=== PATIENT | female | born 1935 | race Caucasian/White ===

== ENCOUNTER 2016-03-22 14:16 | Inpatient (IN) | payer OTHER, MEDICARE ==
[2016-03-22] MEDS ORDERED: Albuterol/Ipratropium Neb 3 ML AERS HHN ONE (14:36)
[2016-03-22 15:26] LABS: MEAN PLATELET VOLUME 8.5 fl; RED BLOOD COUNT 3.96 Mil/cmm (3.80-5.20)
[2016-03-22 15:30] LABS: HEMATOCRIT 34.5 % (35.0-45.0); HEMOGLOBIN 11.8 gm/dL (11.7-16.1); MEAN CELL VOLUME 87.2 fl (81-100); MEAN CORPUSCULAR HEMOGLOBIN 29.9 pg (27.0-31.0); MEAN CORPUSCULAR HGB CONC 34.3 pg (28.0-36.0); PLATELET COUNT 295 Th/cmm (150-400); RED CELL DISTRIBUTION WIDTH 13.4 % (11.5-20.0); WHITE BLOOD COUNT 17.8 Th/cmm (4.8-10.8)
--- NOTE | 2016-03-22 15:37 | Diagnostic Imaging Report ---
Portable chest x-ray HISTORY: Shortness of breath The heart appears somewhat enlarged. Infiltrates noted in the right lung base. This may be chronic. However, pneumonia cannot be excluded. No hilar or mediastinal abnormalities. IMPRESSION: 1. Infiltrate right lung base. This may be chronic. However, pneumonia cannot be excluded. Clinical correlation is needed. 2. Cardiomegaly
[2016-03-22 15:42] LABS: ALB/GLOB RATIO 0.8 (1.0-1.8); ALKALINE PHOSPHATASE 74 U/L (34-104); ANION GAP 11.2 (7.0-16.0); BILIRUBIN,TOTAL 0.5 mg/dL (0.3-1.0); BUN - UREA NITROGEN 15 mg/dL (7-25); CALCIUM SERUM 9.1 mg/dL (8.6-10.3); CARBON DIOXIDE 27.5 mEq/L (21.0-31.0); CHLORIDE 100 mEq/L (98-107); GLUCOSE 178 mg/dL (70-105); POTASSIUM SERUM 3.7 mEq/L (3.5-5.1); SGOT 27 U/L (13-39); SGPT/ALT 19 U/L (7-52); SODIUM SERUM 135 mEq/L (136-145)
[2016-03-22 15:59] LABS: BAND NEUTROPHILE 2 % (0-10); NEUTROPHILS 75 % (40-80); PLATELET ESTIMATE ADEQUATE (NORMAL); PLATELET MORPHOLOGY NORMAL (NORMAL); TOTAL CELLS COUNTED 100
[2016-03-22 16:00] LABS: EOSINOPHIL 0 % (0-5)
[2016-03-22] MEDS ORDERED: cefTRIAXone 2 GM in Sodium Chloride 0.9% 100 ML IV ONE (16:52)
[2016-03-22] MEDS ORDERED: Azithromycin 500 MG in Sodium Chloride 0.9% 250 ML IV ONE (16:54)
--- NOTE | 2016-03-22 16:59 | ED Physician Chart ---
Chief Complaint/HPI - Patient Information Date Seen:: 03/22/16 Time Seen:: 14:30 Chief Complaint:: COUGH, FEVER AND RAPID PULSE History of Present Illness:: Patient has a 3 to 4-day history of difficulty breathing, cough and earlier today fever. The patient's cough is productive of greenish sputum with no hemoptysis. The patient denies any diaphoresis, chest pain, or chills. The patient did have a fever earlier today when she was in her doctor's office. The patient's shortness of breath is significantly more severe today than it was 2- 3 days ago. Allergies:: Allergies Allergy/AdvReac Type Severity Reaction Status Date / Time No Known Allergies Allergy Verified 03/22/16 14:35 Vitals:: Vital Signs - 8 hr 03/22/16 03/22/16 14:36 15:09 Temp 99.6 F HR 112 102 RR 23 20 BP 143/66 O2 Sat % 91 99 Review of Systems - Review of Systems General/Constitutional: Fever, No chills, No weakness, No diaphoresis, Edema Skin: No skin lesions, No rash Head: No headache, No light-headedness Eyes: Acuity change, No loss of vision, No pain, No diplopia ENT: No earache, Nasal drainage, No sore throat Neck: No neck pain, No stiffness, No mass noted Cardio Vascular: No chest pain, No palpitations, No orthopnea, edema Pulmonary: SOB, Cough, Sputum (SPUTUM was green. NO Hemoptysis) GI: No nausea, No vomiting, No pain, No hematemesis G/U: No dysuria, No frequency, No hematuria Bmet: No abnormal vaginal bleed Musculoskeletal: No bone or joint pain, No back pain, No muscle pain Endocrine: No polyuria, No polydipsia Psychiatric: No prior psych history, No suicidal ideation Hematopoietic: No bruising, No lymphadenopathy Allergic/Immuno: No urticaria, No angioedema Neurological: No syncope, No focal symptoms, No weakness, No paresthesia, No headache, No seizure, No vertigo Past Medical History - Past Medical History Past Medical History: HTN (no history of diabetes and she is a nonsmoker.) Family Medical History - Family Member Daughter Hx Family Cancer: No Hx Family Coronary Artery Disease: No Hx Family Congestive Heart Failure: No Hx Family Hypertension: No Hx Family Stroke: No Hx Family Diabetes: No Hx Family Seizures: No Hx Family Dementia: No Hx Family HIV: No Hx Family COPD: No Hx Family Hepatitis: No Hx Family Tuberculosis: No Physical Exam - Physical Examination General/Constitutional: Awake, Well-developed, well-nourished, Alert Other Gen/Cons comments:: Patient is in mild respiratory distress at the present time. Head: Atraumatic Eyes: Lids, conjuctiva normal, PERRL, EOMI Skin: No rash, No skin lesions, No ecchymosis, Well hydrated ENMT: External ears, nose nl, Oropharynx nl, Tonsils nl Neck: Nontender, No JVD, No nuchal rigidity, No mass, No stridor Other Respiratory comments:: Patient with decreased breath sounds in the right base accompanied by a moist sounding rales. Cardio Vascular: No murmur, gallop, rubs, NL S1 S2 GI: No tenderness/rebounding/guarding, No organomegaly, No hernia, Normal BS's, Nondistended, No mass/bruits, No McBurney tenderness : No CVA tenderness, No discharge Other Extremities comments:: Patient with +1-2 peripheral edema in both lower extremities. No associated calf tenderness. Negative Homans sign. Neuro/Psych: Alert/oriented, Normal sensory exam, Normal motor strength, Judgement/insight normal, No focal deficits Misc: Normal back, No paraspinal tenderness Labs/Radiology/EKG Results - Lab Results Results: Laboratory Tests 03/22/16 03/22/16 03/22/16 15:10 15:10 15:10 WBC 17.8 H RBC 3.96 Hgb 11.8 Hct 34.5 L MCV 87.2 MCH 29.9 MCHC Differential 34.3 RDW 13.4 Plt Count 295 MPV 8.5 Band Neutrophils % 2 Neutrophils (Manual) 75 Lymphocytes 12 L Monocytes 11 H Eosinophils 0 Platelet Estimate ADEQUATE Platelet Morphology NORMAL RBC Morph Micro Appear NORMAL Sodium 135 L Potassium 3.7 Chloride 100 Carbon Dioxide 27.5 Anion Gap 11.2 BUN 15 Creatinine 1.0 Est GFR ( Amer) TNP Est GFR (Non-Af Amer) TNP BUN/Creatinine Ratio 15.0 Glucose 178 H Whole Bld Lactic Acid Calcium 9.1 Total Bilirubin 0.5 AST 27 ALT 19 Alkaline Phosphatase 74 Troponin I 0.01 B-Natriuretic Peptide Total Protein 7.9 Albumin 3.4 L Globulin 4.5 Albumin/Globulin Ratio 0.8 L 03/22/16 03/22/16 15:10 15:20 WBC RBC Hgb Hct MCV MCH MCHC Differential RDW Plt Count MPV Band Neutrophils % Neutrophils (Manual) Lymphocytes Monocytes Eosinophils Platelet Estimate Platelet Morphology RBC Morph Micro Appear Sodium Potassium Chloride Carbon Dioxide Anion Gap BUN Creatinine Est GFR ( Amer) Est GFR (Non-Af Amer) BUN/Creatinine Ratio Glucose Whole Bld Lactic Acid 1.37 Calcium Total Bilirubin AST ALT Alkaline Phosphatase Troponin I B-Natriuretic Peptide 101.0 H Total Protein Albumin Globulin Albumin/Globulin Ratio Laboratory Tests 03/22/16 03/22/16 03/22/16 15:10 15:10 15:10 WBC 17.8 H RBC 3.96 Hgb 11.8 Hct 34.5 L MCV 87.2 MCH 29.9 MCHC Differential 34.3 RDW 13.4 Plt Count 295 MPV 8.5 Band Neutrophils % 2 Neutrophils (Manual) 75 Lymphocytes 12 L Monocytes 11 H Eosinophils 0 Platelet Estimate ADEQUATE Platelet Morphology NORMAL RBC Morph Micro Appear NORMAL Sodium 135 L Potassium 3.7 Chloride 100 Carbon Dioxide 27.5 Anion Gap 11.2 BUN 15 Creatinine 1.0 Est GFR ( Amer) TNP Est GFR (Non-Af Amer) TNP BUN/Creatinine Ratio 15.0 Glucose 178 H Whole Bld Lactic Acid Calcium 9.1 Total Bilirubin 0.5 AST 27 ALT 19 Alkaline Phosphatase 74 Troponin I 0.01 B-Natriuretic Peptide Total Protein 7.9 Albumin 3.4 L Globulin 4.5 Albumin/Globulin Ratio 0.8 L 03/22/16 03/22/16 15:10 15:20 WBC RBC Hgb Hct MCV MCH MCHC Differential RDW Plt Count MPV Band Neutrophils % Neutrophils (Manual) Lymphocytes Monocytes Eosinophils Platelet Estimate Platelet Morphology RBC Morph Micro Appear Sodium Potassium Chloride Carbon Dioxide Anion Gap BUN Creatinine Est GFR ( Amer) Est GFR (Non-Af Amer) BUN/Creatinine Ratio Glucose Whole Bld Lactic Acid 1.37 Calcium Total Bilirubin AST ALT Alkaline Phosphatase Troponin I B-Natriuretic Peptide 101.0 H Total Protein Albumin Globulin Albumin/Globulin Ratio Marked leukocytosis with no evidence of anemia. Mild elevation of the serum glucose. Troponin within the normal range. BNP pending at this time. Single view portable CXR: Mild cardiomealy. NO mediastinal widening. NO pneumothorax. RLL zone infiltrate after discussion with radiology. Could also be consistant with mild CHF. - EKG Interpretations EKG Time:: 14:39 Rhythm: SINUS TACHYCARDIA WITH A RATE OF 110 Hext: NORMAL Rate: 110 Comments:: Normal DC interval. Normal QRS duration. Prolonged QT interval of 523. No Q waves. Nonspecific ST-T wave changes. Impression: abnormal EKG. Assessment - Assessment General Assessment: CASE SUMMARY: this 80-year-old female was sent to the emergency department by her physician for evaluation of respiratory distress, cough and fever. The patient symptoms began 3 to 4 days ago and have become progressively more severe. The patient's caucus productive of green sputum and she has had no hemoptysis. She has no chest pain, diaphoresis, nausea or vomiting. Patient has a history of CHF with mild peripheral edema. On physical examination the patient was in mild respiratory distress and mildly tachypnic with the respiratory rate of 22. With supplemental oxygen or O2 saturation was 100% and she had complete relief of respiratory distress. On physical examination the patient had no JVD but there was plus wonder +2 pretibial edema in both lower extremities. Homemand sign was negative and the patient had tenderness. Chest x- ray showed mild cardiomegaly with mild increase in vascular congestion. There is a mild infiltrate in the right lower lungs on. After discussing the case with Dr. Marie, the patient was begun on antibiotics for treatment of pneumonia and arrangements were made for admission to a medicine bed. Admission diagnosis is pneumonia. The patient may also have a component of CHF in addition to the pneumonia. No diuretics were indicated. MDM DDX FOR RESPIRATORY DISTRESS: NOT pulmonary embolism based on pt's history , exam and CXR. The pt Is LOW RISK for PE. NOT metabolic acidosis based on lab studies. NOT COPD exaceration due to pt's histoy, exam and alternate diagnosis of Pneumonia and possible mild CHF. ED Septic Shock - . Is Septic Shock (SBP<90, OR Lactate>4 mmol\L) present?: No - <6hrs of presentation: Vital Signs: Vital Signs - 8 hr 03/22/16 03/22/16 14:36 15:09 Temp 99.6 F HR 112 102 RR 23 20 BP 143/66 O2 Sat % 91 99 Reassessment (Disposition) - Reassessment Reassessment Condition:: Improved - Diagnosis Diagnosis:: RT LOWER LUNG PNEUMONIA. Possible mild CHF. - Aftercare/Follow up Instructions Aftercare/Follow-Up Instructions:: Counseled pt regarding lab results/diagnosis & need follow up - Patient Disposition Discharge/Transfer:: Acute Care w/in this hosp Accepting Physician:: DR. ERNANDEZ ED Discharge Plan - Patient Disposition Admit/Discharge/Transfer: Acute Care w/in this hosp
[2016-03-22] MEDS: Albuterol Nebulizer 2.5mg/3mL HHN SCH (20:37)
[2016-03-23] MEDS: Albuterol Nebulizer 2.5mg/3mL HHN SCH ×4 (02:57→19:23)
[2016-03-23 07:45] LABS: HEMOGLOBIN 10.4 gm/dL (11.7-16.1); MEAN CELL VOLUME 87.2 fl (81-100); MEAN CORPUSCULAR HEMOGLOBIN 29.8 pg (27.0-31.0); MEAN CORPUSCULAR HGB CONC 34.1 pg (28.0-36.0); MEAN PLATELET VOLUME 9.4 fl; PLATELET COUNT 275 Th/cmm (150-400); RED BLOOD COUNT 3.48 Mil/cmm (3.80-5.20); RED CELL DISTRIBUTION WIDTH 13.4 % (11.5-20.0); WHITE BLOOD COUNT 16.4 Th/cmm (4.8-10.8)
[2016-03-23 08:01] LABS: HEMATOCRIT 30.4 % (35.0-45.0)
[2016-03-23 08:36] LABS: BAND NEUTROPHILE 5 % (0-10); EOSINOPHIL 1 % (0-5); NEUTROPHILS 72 % (40-80); PLATELET ESTIMATE ADEQUATE (NORMAL); PLATELET MORPHOLOGY NORMAL (NORMAL); TOTAL CELLS COUNTED 100
[2016-03-23 08:47] LABS: ANION GAP 7.5 (7.0-16.0); BUN - UREA NITROGEN 13 mg/dL (7-25); BUN/CREATININE RATIO 16.3; CALCIUM SERUM 8.4 mg/dL (8.6-10.3); CARBON DIOXIDE 29.2 mEq/L (21.0-31.0); CHLORIDE 104 mEq/L (98-107); CREATININE - SERUM 0.8 mg/dL (0.6-1.2); GLUCOSE 137 mg/dL (70-105); POTASSIUM SERUM 3.7 mEq/L (3.5-5.1); SODIUM SERUM 137 mEq/L (136-145)
--- NOTE | 2016-03-23 10:25 | Diagnostic Imaging Report ---
CHEST X-RAY: AP view INDICATION: Pneumonia COMPARISON: 03/22/2016 FINDINGS: Patient is rotated. Mild congestive changes are noted. There may be a small right effusion. No focal consolidation. Mild cardiomegaly is noted. IMPRESSION: Mild congestive changes with probable small right effusion. Mild cardiomegaly.
[2016-03-23] MEDS ORDERED: VTE Chemical Prophylaxis Screen/Admission MC PRN (15:02)
[2016-03-23] MEDS: cefTRIAXone 1 GM in Sodium Chloride 0.9% 50 ML IV SCH (16:17)
[2016-03-23] MEDS: Azithromycin 250 MG in Sodium Chloride 0.9% 250 ML IV SCH (17:58)
--- NOTE | 2016-03-23 18:36 | General Progress Note ---
Subjective - Review of Systems Service Date: 03/23/16 Subjective: Patient feels better son was at the bedside afebrile breathing better Objective - Results Result Diagrams: 03/23/16 06:26 03/23/16 06:26 Recent Labs: Laboratory Last Values WBC 16.4 Th/cmm (4.8-10.8) H 03/23/16 06:26 RBC 3.48 Mil/cmm (3.80-5.20) L 03/23/16 06:26 Hgb 10.4 gm/dL (11.7-16.1) L 03/23/16 06:26 Hct 30.4 % (35.0-45.0) L D 03/23/16 06:26 MCV 87.2 fl (81-100) 03/23/16 06:26 MCH 29.8 pg (27.0-31.0) 03/23/16 06:26 MCHC Differential 34.1 pg (28.0-36.0) 03/23/16 06:26 RDW 13.4 % (11.5-20.0) 03/23/16 06:26 Plt Count 275 Th/cmm (150-400) 03/23/16 06:26 MPV 9.4 fl 03/23/16 06:26 Band Neutrophils % 5 % (0-10) 03/23/16 06:26 Neutrophils (Manual) 72 % (40-80) 03/23/16 06:26 Lymphocytes 15 % (20-50) L 03/23/16 06:26 Monocytes 7 % (2-10) 03/23/16 06:26 Eosinophils 1 % (0-5) 03/23/16 06:26 Platelet Estimate ADEQUATE (NORMAL) 03/23/16 06:26 Platelet Morphology NORMAL (NORMAL) 03/23/16 06:26 RBC Morph Micro Appear NORMAL (NORMAL) 03/23/16 06:26 Sodium 137 mEq/L (136-145) 03/23/16 06:26 Potassium 3.7 mEq/L (3.5-5.1) 03/23/16 06:26 Chloride 104 mEq/L (98-107) 03/23/16 06:26 Carbon Dioxide 29.2 mEq/L (21.0-31.0) 03/23/16 06:26 Anion Gap 7.5 (7.0-16.0) 03/23/16 06:26 BUN 13 mg/dL (7-25) 03/23/16 06:26 Creatinine 0.8 mg/dL (0.6-1.2) 03/23/16 06:26 Est GFR ( Amer) TNP 03/23/16 06:26 Est GFR (Non-Af Amer) TNP 03/23/16 06:26 BUN/Creatinine Ratio 16.3 03/23/16 06:26 Glucose 137 mg/dL (70-105) H 03/23/16 06:26 Whole Bld Lactic Acid 1.37 mmol/L (0.60-2.00) 03/22/16 15:20 Calcium 8.4 mg/dL (8.6-10.3) L 03/23/16 06:26 Total Bilirubin 0.5 mg/dL (0.3-1.0) 03/22/16 15:10 AST 27 U/L (13-39) 03/22/16 15:10 ALT 19 U/L (7-52) 03/22/16 15:10 Alkaline Phosphatase 74 U/L (34-104) 03/22/16 15:10 Troponin I 0.01 ng/mL (0.01-0.05) 03/22/16 15:10 B-Natriuretic Peptide 101.0 pg/mL (5.0-100.0) H 03/22/16 15:10 Total Protein 7.9 gm/dL (6.0-8.3) 03/22/16 15:10 Albumin 3.4 gm/dL (3.7-5.3) L 03/22/16 15:10 Globulin 4.5 gm/dL 03/22/16 15:10 Albumin/Globulin Ratio 0.8 (1.0-1.8) L 03/22/16 15:10 - Physical Exam Vitals and I&O: Vital Signs Temp 98.0 F 03/23/16 11:42 Pulse 95 03/23/16 14:06 Resp 18 03/23/16 14:06 BP 125/63 03/23/16 11:42 Pulse Ox 96 03/23/16 14:06 Intake & Output 03/22/16 03/23/16 03/23/16 18:59 06:59 18:59 Intake Total 550 100 Balance 550 100 Intake: Oral 550 100 Other: # Voids 1 2 # Bowel Movements 1 Active Medications: Current Medications Albuterol Sulfate (Albuterol 2.5mg/3ml Neb Ud) 2.5 mg HHN Q6HRT [facility] Stop: 05/21/16 18:59 Last Admin: 03/23/16 14:05 Dose: 2.5 mg Azithromycin 250 mg/ Sodium (Chloride) 250 mls @ 250 mls/hr IV Q24HR [facility] Stop: 05/22/16 16:59 Last Admin: 03/23/16 17:58 Dose: 250 mls/hr Ceftriaxone Sodium 1 gm/ (Sodium Chloride) 50 mls @ 100 mls/hr IV Q24HR [facility] Stop: 05/22/16 16:59 Last Admin: 03/23/16 16:17 Dose: 100 mls/hr Methylprednisolone Sodium Succinate (Solu-Medrol) 40 mg IV Q8HR [facility] Stop: 05/22/16 20:59 Miscellaneous (Vte Chemical Prophylaxis Screen/ Admission) 1 ea [facility] PRN PRN PRN Reason: PROTOCOL Stop: 05/22/16 15:01 Cardiovascular: Normal S1, Normal S2 Lungs: Other (rales better) Assessment/Plan - Problem List Patient Problems: All Active Problems COUGH AND CONGESTION WITH DYSPNEA (Acute) - Assessment Assessment: Pneumonia HTN Hyperlipidemia - Plan Plan: Continue rocephine and zithromax Oxygen HHN Monitor vitals Pulmonary on board Family was updated on pt's condition and plan of care
--- NOTE | 2016-03-23 21:26 | History & Physical ---
CHIEF COMPLAINT: Shortness of breath and hypoxia. HISTORY OF PRESENT ILLNESS: This is an 80-year-old female with underlying history of hypertension and hyperlipidemia, who was seen initially by me in the office for evaluation of the chest congestions, cough, shortness of breath. The patient was evaluated and appeared to have hypoxia. Oxygen saturation on room was 86-88%. Also, the patient appeared to be tachycardic in 110-120 range. So, the patient was sent to the Emergency Room for evaluation. Per ER physician's discussions, the patient appeared to have pneumonia and subsequently admitted for further evaluation and treatment. PAST MEDICAL HISTORY: Hypertension and hyperlipidemia. PAST SURGICAL HISTORY: No report of past surgical history. FAMILY HISTORY: Noncontributory. SOCIAL HISTORY: Lives at home. Denies any alcohol, tobacco or street drug use. CURRENT MEDICATIONS: As per medication reconciliation. ALLERGIES: No known allergies. REVIEW OF SYSTEMS: Positive for fever, chills, shortness of breath, cough, chest congestions. No diarrhea, no vomiting, no abdominal pain, no chest pain, no dizziness, no palpitations. PHYSICAL EXAMINATION: VITAL SIGNS: Temperature 98.3, pulse 79, respirations 18, blood pressure 101/50, oxygen 95% on room air. GENERAL APPEARANCE: The patient does not seem in acute distress. CARDIOVASCULAR: S1, S2 normal. LUNGS: Bilateral rales noted. ABDOMEN: Soft, nontender. NEUROLOGIC: The patient is awake. Moves all extremities. No focal deficits. EXTREMITIES: No edema. LABORATORY DATA: Available lab data is as follows: WBC is 17.8, hemoglobin 8.8, hematocrit 34.5. Sodium 135, potassium is 3.7, BUN 15, creatinine 1.0, glucose 178. AST 27, ALT 19. BNP 101. Chest x-ray: Right lung base infiltrate noted. ASSESSMENT: 1. Pneumonia. 2. Hyperlipidemia. 3. Hypertension. 4. Generalized debility. PLAN: The patient was admitted to the hospital for further evaluation and treatment of underlying pneumonia. The patient was started on IV losartan, Zithromax. Nebulizer treatment was started. Oxygen was started. Pulmonology was consulted. We will follow up on the Pulmonology recommendations. The patient's condition was discussed with the nursing staff. JOB# [id number]
[2016-03-24] MEDS: Albuterol Nebulizer 2.5mg/3mL HHN SCH ×4 (00:59→19:11)
[2016-03-24 05:27] LABS: HEMATOCRIT 32.4 % (35.0-45.0); MEAN CELL VOLUME 86.7 fl (81-100); MEAN CORPUSCULAR HEMOGLOBIN 29.5 pg (27.0-31.0); MEAN PLATELET VOLUME 8.7 fl; PLATELET COUNT 315 Th/cmm (150-400); RED BLOOD COUNT 3.73 Mil/cmm (3.80-5.20); RED CELL DISTRIBUTION WIDTH 13.5 % (11.5-20.0)
[2016-03-24 05:32] LABS: WHITE BLOOD COUNT 11.4 Th/cmm (4.8-10.8)
[2016-03-24 05:50] LABS: ANION GAP 3.9 (7.0-16.0); BUN - UREA NITROGEN 13 mg/dL (7-25); BUN/CREATININE RATIO 18.6; CARBON DIOXIDE 29.3 mEq/L (21.0-31.0); CHLORIDE 104 mEq/L (98-107); CREATININE - SERUM 0.7 mg/dL (0.6-1.2); GLUCOSE 235 mg/dL (70-105); POTASSIUM SERUM 4.2 mEq/L (3.5-5.1); SODIUM SERUM 133 mEq/L (136-145)
[2016-03-24 05:51] LABS: CALCIUM SERUM 8.7 mg/dL (8.6-10.3)
--- NOTE | 2016-03-24 06:23 | Consultation ---
The patient of Dr. Marie. Thank you very much, Dr. Marie, for this consultation. HISTORY OF PRESENT ILLNESS: This is an 80-year-old female who presented with fever, cough productive to yellowish, whitish sputum and some shortness of breath as well for a few days and was admitted for treatment and management. The patient appears to have productive cough. She denies any history of asthma or other lung problems, no history of smoking either. PAST MEDICAL HISTORY: As above, hypertension, hypercholesterolemia. SOCIAL HISTORY: No history of smoking. PHYSICAL EXAMINATION: GENERAL: Arousable, not in acute distress. VITAL SIGNS: Temperature 98.0, pulse 95, respirations 18, blood pressure is 125/66, saturation 96% on 2 liters nasal cannula. HEENT: Atraumatic, normocephalic. Pupils reactive to light and accommodation. Ears, nose normal. Throat class III upper airways. NECK: Supple. No JVD. CHEST: There are scattered rhonchi and wheezing bilaterally. HEART: Regular rate and rhythm. ABDOMEN: Soft. EXTREMITIES: No edema. LABORATORY DATA: WBC 16.4, hemoglobin 10.4, platelets 275. Sodium 137, potassium 3.7, BUN 13, creatinine 0.8. Chest x-ray, infiltrate right lower lobe area, mild congestion. IMPRESSION: This is an 80-year-old female with, 1. Acute bronchitis. 2. Pneumonia. 3. Bronchospasms. PLAN: 1. IV antibiotics. 2. Nebulizer. 3. Add IV Solu-Medrol. 4. Follow up chest x-ray, I will follow the patient with you. JOB# [id number] [facility]
[2016-03-24 08:17] LABS: BAND NEUTROPHILE 8 % (0-10); METAMYELOCYTE 1 % (0-0); NEUTROPHILS 84 % (40-80); PLATELET ESTIMATE ADEQUATE (NORMAL); PLATELET MORPHOLOGY NORMAL (NORMAL); TOTAL CELLS COUNTED 100
[2016-03-24] MEDS: cefTRIAXone 1 GM in Sodium Chloride 0.9% 50 ML IV SCH (16:47)
[2016-03-24] MEDS: Promethazine DM 6.25/15mg-5mL 5 ML SYR PO PRN (17:10)
[2016-03-24] MEDS: Azithromycin 250 MG in Sodium Chloride 0.9% 250 ML IV SCH (17:12)
--- NOTE | 2016-03-24 20:53 | General Progress Note ---
Subjective - Review of Systems Service Date: 03/24/16 Subjective: Patient feels better afebrile breathing better WBC better Objective - Results Result Diagrams: 03/24/16 04:41 03/24/16 04:41 Recent Labs: Laboratory Last Values WBC 11.4 Th/cmm (4.8-10.8) H D 03/24/16 04:41 RBC 3.73 Mil/cmm (3.80-5.20) L 03/24/16 04:41 Hgb 11.0 gm/dL (11.7-16.1) L 03/24/16 04:41 Hct 32.4 % (35.0-45.0) L 03/24/16 04:41 MCV 86.7 fl (81-100) 03/24/16 04:41 MCH 29.5 pg (27.0-31.0) 03/24/16 04:41 MCHC Differential 34.0 pg (28.0-36.0) 03/24/16 04:41 RDW 13.5 % (11.5-20.0) 03/24/16 04:41 Plt Count 315 Th/cmm (150-400) 03/24/16 04:41 MPV 8.7 fl 03/24/16 04:41 Band Neutrophils % 8 % (0-10) 03/24/16 04:41 Neutrophils (Manual) 84 % (40-80) H 03/24/16 04:41 Lymphocytes 6 % (20-50) L 03/24/16 04:41 Monocytes 1 % (2-10) L 03/24/16 04:41 Eosinophils 1 % (0-5) 03/23/16 06:26 Metamyelocytes 1 % (0-0) H 03/24/16 04:41 Platelet Estimate ADEQUATE (NORMAL) 03/24/16 04:41 Platelet Morphology NORMAL (NORMAL) 03/24/16 04:41 RBC Morph Micro Appear NORMAL (NORMAL) 03/24/16 04:41 Sodium 133 mEq/L (136-145) L 03/24/16 04:41 Potassium 4.2 mEq/L (3.5-5.1) 03/24/16 04:41 Chloride 104 mEq/L (98-107) 03/24/16 04:41 Carbon Dioxide 29.3 mEq/L (21.0-31.0) 03/24/16 04:41 Anion Gap 3.9 (7.0-16.0) L 03/24/16 04:41 BUN 13 mg/dL (7-25) 03/24/16 04:41 Creatinine 0.7 mg/dL (0.6-1.2) 03/24/16 04:41 Est GFR ( Amer) TNP 03/24/16 04:41 Est GFR (Non-Af Amer) TNP 03/24/16 04:41 BUN/Creatinine Ratio 18.6 03/24/16 04:41 Glucose 235 mg/dL (70-105) H 03/24/16 04:41 Hemoglobin A1c % 6.3 % (4.0-6.0) H 03/24/16 04:41 Whole Bld Lactic Acid 1.37 mmol/L (0.60-2.00) 03/22/16 15:20 Calcium 8.7 mg/dL (8.6-10.3) 03/24/16 04:41 Total Bilirubin 0.5 mg/dL (0.3-1.0) 03/22/16 15:10 AST 27 U/L (13-39) 03/22/16 15:10 ALT 19 U/L (7-52) 03/22/16 15:10 Alkaline Phosphatase 74 U/L (34-104) 03/22/16 15:10 Troponin I 0.01 ng/mL (0.01-0.05) 03/22/16 15:10 B-Natriuretic Peptide 101.0 pg/mL (5.0-100.0) H 03/22/16 15:10 Total Protein 7.9 gm/dL (6.0-8.3) 03/22/16 15:10 Albumin 3.4 gm/dL (3.7-5.3) L 03/22/16 15:10 Globulin 4.5 gm/dL 03/22/16 15:10 Albumin/Globulin Ratio 0.8 (1.0-1.8) L 03/22/16 15:10 - Physical Exam Vitals and I&O: Vital Signs Temp 96.7 F 03/24/16 20:00 Pulse 82 03/24/16 20:00 Resp 19 03/24/16 20:00 BP 117/53 03/24/16 20:00 Pulse Ox 97 03/24/16 20:00 Intake & Output 03/24/16 03/24/16 03/25/16 06:59 18:59 06:59 Intake Total 500 400 Balance 500 400 Intake: Oral 500 400 Other: # Voids 2 2 # Bowel Movements 0 0 Active Medications: Current Medications Albuterol Sulfate (Albuterol 2.5mg/3ml Neb Ud) 2.5 mg HHN Q6HRT [facility] Stop: 05/21/16 18:59 Last Admin: 03/24/16 19:11 Dose: 2.5 mg Azithromycin 250 mg/ Sodium (Chloride) 250 mls @ 250 mls/hr IV Q24HR [facility] Stop: 05/22/16 16:59 Last Admin: 03/24/16 17:12 Dose: 250 mls/hr Ceftriaxone Sodium 1 gm/ (Sodium Chloride) 50 mls @ 100 mls/hr IV Q24HR [facility] Stop: 05/22/16 16:59 Last Admin: 03/24/16 16:47 Dose: 100 mls/hr Methylprednisolone Sodium Succinate (Solu-Medrol) 40 mg IV Q8HR [facility] Stop: 05/22/16 20:59 Last Admin: 03/24/16 20:49 Dose: 40 mg Miscellaneous (Vte Chemical Prophylaxis Screen/ Admission) 1 ea [facility] PRN PRN PRN Reason: PROTOCOL Stop: 05/22/16 15:01 Promethazine HCl/Dextromethorphan (Phenergan Dm 6.25/15mg-5 Ml) 10 ml PO Q4HR PRN PRN Reason: Cough Stop: 05/23/16 13:51 Last Admin: 03/24/16 17:10 Dose: 10 ml Cardiovascular: Regular rate Lungs: Other (rales better) Assessment/Plan - Problem List Patient Problems: All Active Problems COUGH AND CONGESTION WITH DYSPNEA (Acute) - Assessment Assessment: Pneumonia HTN Hyperlipidemia Obesity Hyperglycemia 2' to steroids Debilty - Plan Plan: Continue rocephine and zithromax IV Solumedrol Oxygen HHN Monitor vitals Pulmonary on board Follow up chest xray in am Plan of care discussed with nursing staff
--- NOTE | 2016-03-25 00:49 | Admit Criteria Form ---
Admit Criteria Forms - Admit Criteria Diagnosis: PNEUMONIA, COMMUNITY ACQUIRED Clinical Indications for Admission to Inpatient Care ( Place 'X' for any and all applicable criteria): Admission is indicated for ANY ONE of the following (1)(2)(3): [ ]I. Hypoxemia indicated by ANY ONE of the following: [ ]a) Oxygen saturation less than 90% while breathing room air [ ]b) PO2 less than 60 mm Hg (8.0 kPa) while breathing room air [ ]c) Chronic lung disease with significant deterioration from baseline oxygenation [ ]II. Appropriate diagnostic testing and treatment unavailable in outpatient or recovery facility (eg,testing or infection control measures unavailable(10) [ ]III. Moderate-risk or high-risk category patients (Pneumonia Severity Index (PSI) class IV or V, or CURB-65 score of 3 or greater). [ ]IV. Outpatient treatment failure as indicated by ANY ONE of the following(9) : [ ]a) Failure to respond to antibiotic (eg, resistant organism) [ ]b) Clinically significant adverse effects from medication (eg, vomiting) [ ]c) Complications of pneumonia (eg, empyema, bacteremia) [ ]d) Significant worsening of comorbid cond necessitating inpatient care (eg, chronic heart failure) [X]V. Intermediate-risk category patients (eg, PSI class III or CURB-65 score 2) who do not improve with initial therapy and observation. [ ]. Immunocompromised patients (eg, AIDS, chronic steroid use) at moderate or high risk based on clinical evaluation. [ ]VII. Complicated pleural effusions (eg, exudative, loculated) [ ]VIII.Hemodynamic instability [ ] IX. Altered mental status that is severe or persistent. [ ]X. Dehydration that is severe or persistent. [ ]XI. Bacteremia [ ]XII. Respiratory finding (eg. tachypnea) that do not respond to outpatient or observation care treatment Extended stay beyond goal length of stay may be needed for (20) [ ]a) Unclear diagnosis [ ]b) Pleural disease [ ]c) Severe pneumonia or treatment failure (25 [ ]d) Respiratory failure (anticipate invasive or noninvasive ventilatory support) [ ]e) Abnormal serum electrolytes (serum Na concentration less than 135 mEq/L (mmol/L) (32)(33) [ ]f) Clinically significant comorbid illness (eg, heart failure, atrial fibrillation with rapid heart rate, alcohol withdrawal, renal insufficiency)(34)(35) [ ]g) Comorbid acute exacerbation of COPD(36) [ ]h) Concomitant diagnosis of malignancy that may be associated with malnutrition, immunologic impairment, or bronchial obstruction. [ ]i) Concomitant altered mental status [ ]j) Culture-identified Gram-negative or antibiotic-resistant organism (eg, Pseudomonas, methicillin-resistant Staphylococcus aureus)(30) [ ]k) Healthcare-associated pneumonia The original [facility] content created by [employer] has been revised. The portions of the content which have been revised are identified through the use of italic text or in bold, and [facility] has neither reviewed nor approved the modified material. All other unmodified content is copyright [facility] Please see references footnoted in the original [facility] [employer] edition 2016 Admit Criteria Met?: Yes
[2016-03-25] MEDS: Albuterol Nebulizer 2.5mg/3mL HHN SCH ×4 (01:01→19:25)
[2016-03-25] MEDS: methylPREDNISolone SS 40 mg Vial IVP SCH ×3 (05:02→21:01)
--- NOTE | 2016-03-25 09:39 | Diagnostic Imaging Report ---
CHEST X-RAY: AP view INDICATION: Shortness of breath COMPARISON: Chest x-ray 03/23/2016 FINDINGS: Mild congestive changes are seen with bibasal atelectasis. No focal consolidation identified. No effusions. Mild cardiomegaly is noted. IMPRESSION: Mild congestive changes and bibasal atelectasis. No focal consolidation identified. Mild cardiomegaly.
[2016-03-25] MEDS: cefTRIAXone 1 GM in Sodium Chloride 0.9% 50 ML IV SCH (16:44)
[2016-03-25] MEDS: Azithromycin 250 MG in Sodium Chloride 0.9% 250 ML IV SCH (17:33)
--- NOTE | 2016-03-25 20:47 | General Progress Note ---
Subjective - Review of Systems Service Date: 03/25/16 Subjective: Patient feels better denied any complaints Chest xray seems better Objective - Results Result Diagrams: 03/24/16 04:41 03/24/16 04:41 Recent Labs: Laboratory Last Values WBC 11.4 Th/cmm (4.8-10.8) H D 03/24/16 04:41 RBC 3.73 Mil/cmm (3.80-5.20) L 03/24/16 04:41 Hgb 11.0 gm/dL (11.7-16.1) L 03/24/16 04:41 Hct 32.4 % (35.0-45.0) L 03/24/16 04:41 MCV 86.7 fl (81-100) 03/24/16 04:41 MCH 29.5 pg (27.0-31.0) 03/24/16 04:41 MCHC Differential 34.0 pg (28.0-36.0) 03/24/16 04:41 RDW 13.5 % (11.5-20.0) 03/24/16 04:41 Plt Count 315 Th/cmm (150-400) 03/24/16 04:41 MPV 8.7 fl 03/24/16 04:41 Band Neutrophils % 8 % (0-10) 03/24/16 04:41 Neutrophils (Manual) 84 % (40-80) H 03/24/16 04:41 Lymphocytes 6 % (20-50) L 03/24/16 04:41 Monocytes 1 % (2-10) L 03/24/16 04:41 Eosinophils 1 % (0-5) 03/23/16 06:26 Metamyelocytes 1 % (0-0) H 03/24/16 04:41 Platelet Estimate ADEQUATE (NORMAL) 03/24/16 04:41 Platelet Morphology NORMAL (NORMAL) 03/24/16 04:41 RBC Morph Micro Appear NORMAL (NORMAL) 03/24/16 04:41 Sodium 133 mEq/L (136-145) L 03/24/16 04:41 Potassium 4.2 mEq/L (3.5-5.1) 03/24/16 04:41 Chloride 104 mEq/L (98-107) 03/24/16 04:41 Carbon Dioxide 29.3 mEq/L (21.0-31.0) 03/24/16 04:41 Anion Gap 3.9 (7.0-16.0) L 03/24/16 04:41 BUN 13 mg/dL (7-25) 03/24/16 04:41 Creatinine 0.7 mg/dL (0.6-1.2) 03/24/16 04:41 Est GFR ( Amer) TNP 03/24/16 04:41 Est GFR (Non-Af Amer) TNP 03/24/16 04:41 BUN/Creatinine Ratio 18.6 03/24/16 04:41 Glucose 235 mg/dL (70-105) H 03/24/16 04:41 Hemoglobin A1c % 6.3 % (4.0-6.0) H 03/24/16 04:41 Whole Bld Lactic Acid 1.37 mmol/L (0.60-2.00) 03/22/16 15:20 Calcium 8.7 mg/dL (8.6-10.3) 03/24/16 04:41 Total Bilirubin 0.5 mg/dL (0.3-1.0) 03/22/16 15:10 AST 27 U/L (13-39) 03/22/16 15:10 ALT 19 U/L (7-52) 03/22/16 15:10 Alkaline Phosphatase 74 U/L (34-104) 03/22/16 15:10 Troponin I 0.01 ng/mL (0.01-0.05) 03/22/16 15:10 B-Natriuretic Peptide 101.0 pg/mL (5.0-100.0) H 03/22/16 15:10 Total Protein 7.9 gm/dL (6.0-8.3) 03/22/16 15:10 Albumin 3.4 gm/dL (3.7-5.3) L 03/22/16 15:10 Globulin 4.5 gm/dL 03/22/16 15:10 Albumin/Globulin Ratio 0.8 (1.0-1.8) L 03/22/16 15:10 - Physical Exam Vitals and I&O: Vital Signs Temp 97.2 F 03/25/16 16:00 Pulse 70 03/25/16 19:26 Resp 18 03/25/16 19:26 BP 147/70 03/25/16 16:00 Pulse Ox 97 03/25/16 19:26 Intake & Output 03/25/16 03/25/16 03/26/16 06:59 18:59 06:59 Intake Total 500 750 Balance 500 750 Intake: Intake, IV Amount 250 Azithromycin 250 mg In 250 Sodium Chloride 0.9% 250 ml @ 250 mls/hr IV Q24HR [facility] Rx#:[id number] Oral 500 500 Other: # Voids 2 4 # Bowel Movements 1 1 Stool Characteristics Formed Active Medications: Current Medications Albuterol Sulfate (Albuterol 2.5mg/3ml Neb Ud) 2.5 mg HHN Q6HRT [facility] Stop: 05/21/16 18:59 Last Admin: 03/25/16 19:25 Dose: 2.5 mg Azithromycin 250 mg/ Sodium (Chloride) 250 mls @ 250 mls/hr IV Q24HR [facility] Stop: 05/22/16 16:59 Last Infusion: 03/25/16 18:35 Dose: Infused Ceftriaxone Sodium 1 gm/ (Sodium Chloride) 50 mls @ 100 mls/hr IV Q24HR [facility] Stop: 05/22/16 16:59 Last Admin: 03/25/16 16:44 Dose: 100 mls/hr Methylprednisolone Sodium Succinate (Solu-Medrol) 20 mg IVP Q8HR [facility] Stop: 05/24/16 04:59 Last Admin: 03/25/16 13:19 Dose: 20 mg Miscellaneous (Vte Chemical Prophylaxis Screen/ Admission) 1 [facility] PRN PRN PRN Reason: PROTOCOL Stop: 05/22/16 15:01 Promethazine HCl/Dextromethorphan (Phenergan Dm 6.25/15mg-5 Ml) 10 ml PO Q4HR PRN PRN Reason: Cough Stop: 05/23/16 13:51 Last Admin: 03/24/16 17:10 Dose: 10 ml Cardiovascular: Regular rate Lungs: Other (rales better) Abdomen: Soft Assessment/Plan - Problem List Patient Problems: All Active Problems COUGH AND CONGESTION WITH DYSPNEA (Acute) - Assessment Assessment: Pneumonia HTN Hyperlipidemia Obesity Hyperglycemia 2' to steroids Debilty - Plan Plan: Continue rocephine and zithromax IV Solumedrol Oxygen HHN Monitor vitals Pulmonary on board Follow up chest xray in am Plan of care discussed with nursing staff OLGA planing for SNIF
[2016-03-26] MEDS: Promethazine DM 6.25/15mg-5mL 5 ML SYR PO PRN (01:07)
[2016-03-26] MEDS: Albuterol Nebulizer 2.5mg/3mL HHN SCH ×4 (01:44→22:02)
[2016-03-26] MEDS: methylPREDNISolone SS 40 mg Vial IVP SCH ×3 (05:40→21:49)
[2016-03-26 07:25] LABS: ALB/GLOB RATIO 0.8 (1.0-1.8); ALKALINE PHOSPHATASE 66 U/L (34-104); ANION GAP 9.3 (7.0-16.0); BILIRUBIN,TOTAL 0.2 mg/dL (0.3-1.0); BUN - UREA NITROGEN 27 mg/dL (7-25); BUN/CREATININE RATIO 38.6; CALCIUM SERUM 8.9 mg/dL (8.6-10.3); CARBON DIOXIDE 29.5 mEq/L (21.0-31.0); CHLORIDE 105 mEq/L (98-107); CREATININE - SERUM 0.7 mg/dL (0.6-1.2); GLUCOSE 201 mg/dL (70-105); POTASSIUM SERUM 4.8 mEq/L (3.5-5.1); SGOT 18 U/L (13-39); SGPT/ALT 25 U/L (7-52); SODIUM SERUM 139 mEq/L (136-145)
--- NOTE | 2016-03-26 10:29 | Diagnostic Imaging Report ---
Portable chest x-ray HISTORY: Shortness of breath The overall heart size is difficult to assess with portable technique in a poor inspiration. Poor visualization the left lower lobe that appears related to overlying soft tissues. No obvious focal parenchymal processes are seen. IMPRESSION: 1. Poor visualization of the left lower lobe that appears related to overlying soft tissues. No obvious focal processes are seen. If necessary, a follow-up radiograph would provide for further assessment.
[2016-03-26] MEDS: Azithromycin 250 MG in Sodium Chloride 0.9% 250 ML IV SCH (16:00)
[2016-03-26] MEDS: cefTRIAXone 1 GM in Sodium Chloride 0.9% 50 ML IV SCH (16:15)
[2016-03-27] MEDS: Albuterol Nebulizer 2.5mg/3mL HHN SCH ×4 (02:11→20:17)
[2016-03-27] MEDS: methylPREDNISolone SS 40 mg Vial IVP SCH ×2 (09:35→20:56)
[2016-03-27] MEDS: Azithromycin 250 MG in Sodium Chloride 0.9% 250 ML IV SCH (16:25)
[2016-03-27] MEDS: cefTRIAXone 1 GM in Sodium Chloride 0.9% 50 ML IV SCH (18:28)
--- NOTE | 2016-03-27 19:17 | General Progress Note ---
Subjective - Review of Systems Service Date: 03/27/16 Subjective: Patient feels better denied any complaints Objective - Results Result Diagrams: 03/24/16 04:41 03/26/16 05:46 Recent Labs: Laboratory Last Values WBC 11.4 Th/cmm (4.8-10.8) H D 03/24/16 04:41 RBC 3.73 Mil/cmm (3.80-5.20) L 03/24/16 04:41 Hgb 11.0 gm/dL (11.7-16.1) L 03/24/16 04:41 Hct 32.4 % (35.0-45.0) L 03/24/16 04:41 MCV 86.7 fl (81-100) 03/24/16 04:41 MCH 29.5 pg (27.0-31.0) 03/24/16 04:41 MCHC Differential 34.0 pg (28.0-36.0) 03/24/16 04:41 RDW 13.5 % (11.5-20.0) 03/24/16 04:41 Plt Count 315 Th/cmm (150-400) 03/24/16 04:41 MPV 8.7 fl 03/24/16 04:41 Band Neutrophils % 8 % (0-10) 03/24/16 04:41 Neutrophils (Manual) 84 % (40-80) H 03/24/16 04:41 Lymphocytes 6 % (20-50) L 03/24/16 04:41 Monocytes 1 % (2-10) L 03/24/16 04:41 Eosinophils 1 % (0-5) 03/23/16 06:26 Metamyelocytes 1 % (0-0) H 03/24/16 04:41 Platelet Estimate ADEQUATE (NORMAL) 03/24/16 04:41 Platelet Morphology NORMAL (NORMAL) 03/24/16 04:41 RBC Morph Micro Appear NORMAL (NORMAL) 03/24/16 04:41 Sodium 139 mEq/L (136-145) 03/26/16 05:46 Potassium 4.8 mEq/L (3.5-5.1) 03/26/16 05:46 Chloride 105 mEq/L (98-107) 03/26/16 05:46 Carbon Dioxide 29.5 mEq/L (21.0-31.0) 03/26/16 05:46 Anion Gap 9.3 (7.0-16.0) 03/26/16 05:46 BUN 27 mg/dL (7-25) H 03/26/16 05:46 Creatinine 0.7 mg/dL (0.6-1.2) 03/26/16 05:46 Est GFR ( Amer) TNP 03/26/16 05:46 Est GFR (Non-Af Amer) TNP 03/26/16 05:46 BUN/Creatinine Ratio 38.6 03/26/16 05:46 Glucose 201 mg/dL (70-105) H 03/26/16 05:46 Hemoglobin A1c % 6.3 % (4.0-6.0) H 03/24/16 04:41 Whole Bld Lactic Acid 1.37 mmol/L (0.60-2.00) 03/22/16 15:20 Calcium 8.9 mg/dL (8.6-10.3) 03/26/16 05:46 Total Bilirubin 0.2 mg/dL (0.3-1.0) L 03/26/16 05:46 AST 18 U/L (13-39) 03/26/16 05:46 ALT 25 U/L (7-52) 03/26/16 05:46 Alkaline Phosphatase 66 U/L (34-104) 03/26/16 05:46 Troponin I 0.01 ng/mL (0.01-0.05) 03/22/16 15:10 B-Natriuretic Peptide 101.0 pg/mL (5.0-100.0) H 03/22/16 15:10 Total Protein 6.7 gm/dL (6.0-8.3) 03/26/16 05:46 Albumin 2.9 gm/dL (3.7-5.3) L 03/26/16 05:46 Globulin 3.8 gm/dL 03/26/16 05:46 Albumin/Globulin Ratio 0.8 (1.0-1.8) L 03/26/16 05:46 - Physical Exam Vitals and I&O: Vital Signs Temp 97.3 F 03/27/16 16:00 Pulse 82 03/27/16 16:00 Resp 18 03/27/16 16:00 BP 147/79 03/27/16 16:00 Pulse Ox 95 03/27/16 16:00 Intake & Output 03/27/16 03/27/16 03/28/16 06:59 18:59 06:59 Intake Total 200 Balance 200 Intake: Oral 200 Other: # Voids 4 # Bowel Movements 2 Active Medications: Current Medications Albuterol Sulfate (Albuterol 2.5mg/3ml Neb Ud) 2.5 mg HHN Q6HRT [facility] Stop: 05/21/16 18:59 Last Admin: 03/27/16 12:10 Dose: 2.5 mg Azithromycin 250 mg/ Sodium (Chloride) 250 mls @ 250 mls/hr IV Q24HR [facility] Stop: 05/22/16 16:59 Last Admin: 03/27/16 16:25 Dose: 250 mls/hr Ceftriaxone Sodium 1 gm/ (Sodium Chloride) 50 mls @ 100 mls/hr IV Q24HR [facility] Stop: 05/22/16 16:59 Last Admin: 03/27/16 18:28 Dose: 100 mls/hr Methylprednisolone Sodium Succinate (Solu-Medrol) 20 mg IVP Q12HR [facility] Stop: 05/25/16 20:59 Last Admin: 03/27/16 09:35 Dose: 20 mg Miscellaneous (Vte Chemical Prophylaxis Screen/ Admission) 1 [facility] PRN PRN PRN Reason: PROTOCOL Stop: 05/22/16 15:01 Promethazine HCl/Dextromethorphan (Phenergan Dm 6.25/15mg-5 Ml) 10 ml PO Q4HR PRN PRN Reason: Cough Stop: 05/23/16 13:51 Last Admin: 03/26/16 01:07 Dose: 10 ml Cardiovascular: Regular rate Lungs: Other (rales better) Abdomen: Soft Assessment/Plan - Problem List Patient Problems: All Active Problems COUGH AND CONGESTION WITH DYSPNEA (Acute) - Assessment Assessment: Pneumonia HTN Hyperlipidemia Obesity Hyperglycemia 2' to steroids Debilty - Plan Plan: Continue rocephine and zithromax IV Solumedrol Oxygen HHN Monitor vitals Pulmonary on board Follow up chest xray in am Plan of care discussed with nursing staff LOGA planing for SNIF
[2016-03-28] MEDS: Albuterol Nebulizer 2.5mg/3mL HHN SCH ×4 (01:28→19:12)
[2016-03-28 05:50] LABS: HEMATOCRIT 34.9 % (35.0-45.0); MEAN CORPUSCULAR HEMOGLOBIN 29.5 pg (27.0-31.0); MEAN CORPUSCULAR HGB CONC 34.3 pg (28.0-36.0); MEAN PLATELET VOLUME 9.1 fl; RED BLOOD COUNT 4.06 Mil/cmm (3.80-5.20); RED CELL DISTRIBUTION WIDTH 13.7 % (11.5-20.0)
[2016-03-28 05:54] LABS: PLATELET COUNT 413 Th/cmm (150-400); WHITE BLOOD COUNT 14.3 Th/cmm (4.8-10.8)
[2016-03-28 06:06] LABS: ANION GAP 7.7 (7.0-16.0); BUN - UREA NITROGEN 23 mg/dL (7-25); BUN/CREATININE RATIO 28.8; CARBON DIOXIDE 29.2 mEq/L (21.0-31.0); CHLORIDE 103 mEq/L (98-107); CREATININE - SERUM 0.8 mg/dL (0.6-1.2); GLUCOSE 244 mg/dL (70-105); POTASSIUM SERUM 4.9 mEq/L (3.5-5.1); SODIUM SERUM 135 mEq/L (136-145)
[2016-03-28 09:41] LABS: NEUTROPHILS 91 % (40-80); TOTAL CELLS COUNTED 100
[2016-03-28 09:42] LABS: EOSINOPHIL 0 % (0-5); MYELOCYTE 1 %; PLATELET ESTIMATE ADEQUATE (NORMAL); PLATELET MORPHOLOGY NORMAL (NORMAL)
[2016-03-28] MEDS: methylPREDNISolone SS 40 mg Vial IVP SCH ×2 (10:11→20:56)
--- NOTE | 2016-03-28 11:50 | Diagnostic Imaging Report ---
Portable chest x-ray HISTORY: Shortness of breath The heart size is difficult to assess with portable technique in a poor inspiration. Allowing for the poor inspiration, no definite focal pulmonary parenchymal processes are seen. IMPRESSION: 1. Allowing for a poor inspiration, no definite focal pulmonary processes
[2016-03-28] MEDS: cefTRIAXone 1 GM in Sodium Chloride 0.9% 50 ML IV SCH (17:11)
[2016-03-28] MEDS: Azithromycin 250 MG in Sodium Chloride 0.9% 250 ML IV SCH (17:20)
--- NOTE | 2016-03-28 19:35 | General Progress Note ---
Subjective - Review of Systems Subjective: Patient feels better denied any complaints Objective - Results Result Diagrams: 03/28/16 05:10 03/28/16 05:10 Recent Labs: Laboratory Last Values WBC 14.3 Th/cmm (4.8-10.8) H D 03/28/16 05:10 RBC 4.06 Mil/cmm (3.80-5.20) 03/28/16 05:10 Hgb 12.0 gm/dL (11.7-16.1) 03/28/16 05:10 Hct 34.9 % (35.0-45.0) L 03/28/16 05:10 MCV 86.0 fl (81-100) 03/28/16 05:10 MCH 29.5 pg (27.0-31.0) 03/28/16 05:10 MCHC Differential 34.3 pg (28.0-36.0) 03/28/16 05:10 RDW 13.7 % (11.5-20.0) 03/28/16 05:10 Plt Count 413 Th/cmm (150-400) H D 03/28/16 05:10 MPV 9.1 fl 03/28/16 05:10 Band Neutrophils % 8 % (0-10) 03/24/16 04:41 Neutrophils (Manual) 91 % (40-80) H 03/28/16 05:10 Lymphocytes 7 % (20-50) L 03/28/16 05:10 Monocytes 1 % (2-10) L 03/28/16 05:10 Eosinophils 0 % (0-5) 03/28/16 05:10 Metamyelocytes 1 % (0-0) H 03/24/16 04:41 Myelocytes 1 % 03/28/16 05:10 Platelet Estimate ADEQUATE (NORMAL) 03/28/16 05:10 Platelet Morphology NORMAL (NORMAL) 03/28/16 05:10 RBC Morph Micro Appear NORMAL (NORMAL) 03/28/16 05:10 Sodium 135 mEq/L (136-145) L 03/28/16 05:10 Potassium 4.9 mEq/L (3.5-5.1) 03/28/16 05:10 Chloride 103 mEq/L (98-107) 03/28/16 05:10 Carbon Dioxide 29.2 mEq/L (21.0-31.0) 03/28/16 05:10 Anion Gap 7.7 (7.0-16.0) 03/28/16 05:10 BUN 23 mg/dL (7-25) 03/28/16 05:10 Creatinine 0.8 mg/dL (0.6-1.2) 03/28/16 05:10 Est GFR ( Amer) TNP 03/28/16 05:10 Est GFR (Non-Af Amer) TNP 03/28/16 05:10 BUN/Creatinine Ratio 28.8 03/28/16 05:10 Glucose 244 mg/dL (70-105) H 03/28/16 05:10 Hemoglobin A1c % 6.3 % (4.0-6.0) H 03/24/16 04:41 Whole Bld Lactic Acid 1.37 mmol/L (0.60-2.00) 03/22/16 15:20 Calcium 9.0 mg/dL (8.6-10.3) 03/28/16 05:10 Total Bilirubin 0.2 mg/dL (0.3-1.0) L 03/26/16 05:46 AST 18 U/L (13-39) 03/26/16 05:46 ALT 25 U/L (7-52) 03/26/16 05:46 Alkaline Phosphatase 66 U/L (34-104) 03/26/16 05:46 Troponin I 0.01 ng/mL (0.01-0.05) 03/22/16 15:10 B-Natriuretic Peptide 101.0 pg/mL (5.0-100.0) H 03/22/16 15:10 Total Protein 6.7 gm/dL (6.0-8.3) 03/26/16 05:46 Albumin 2.9 gm/dL (3.7-5.3) L 03/26/16 05:46 Globulin 3.8 gm/dL 03/26/16 05:46 Albumin/Globulin Ratio 0.8 (1.0-1.8) L 03/26/16 05:46 - Physical Exam Vitals and I&O: Vital Signs Temp 97.4 F 03/28/16 16:00 Pulse 83 03/28/16 16:00 Resp 22 03/28/16 16:00 BP 146/81 03/28/16 16:00 Pulse Ox 95 03/28/16 16:00 Intake & Output 03/28/16 03/28/16 03/29/16 06:59 18:59 06:59 Intake Total 200 700 Balance 200 700 Intake: Intake, IV Amount 300 Azithromycin 250 mg In 250 Sodium Chloride 0.9% 250 ml @ 250 mls/hr IV Q24HR [facility] Rx#:[id number] cefTRIAXone 1 gm In 50 Sodium Chloride 0.9% 50 ml @ 100 mls/hr IV Q24HR [facility] Rx#:[id number] Oral 200 400 Other: # Voids 3 3 # Bowel Movements 0 Active Medications: Current Medications Albuterol Sulfate (Albuterol 2.5mg/3ml Neb Ud) 2.5 mg HHN Q6HRT [facility] Stop: 05/21/16 18:59 Last Admin: 03/28/16 19:12 Dose: 2.5 mg Azithromycin 250 mg/ Sodium (Chloride) 250 mls @ 250 mls/hr IV Q24HR [facility] Stop: 05/22/16 16:59 Last Infusion: 03/28/16 18:55 Dose: Infused Ceftriaxone Sodium 1 gm/ (Sodium Chloride) 50 mls @ 100 mls/hr IV Q24HR [facility] Stop: 05/22/16 16:59 Last Infusion: 03/28/16 18:55 Dose: Infused Methylprednisolone Sodium Succinate (Solu-Medrol) 20 mg IVP Q12HR [facility] Stop: 05/25/16 20:59 Last Admin: 03/28/16 10:11 Dose: 20 mg Miscellaneous (Vte Chemical Prophylaxis Screen/ Admission) 1 [facility] PRN PRN PRN Reason: PROTOCOL Stop: 05/22/16 15:01 Promethazine HCl/Dextromethorphan (Phenergan Dm 6.25/15mg-5 Ml) 10 ml PO Q4HR PRN PRN Reason: Cough Stop: 05/23/16 13:51 Last Admin: 03/26/16 01:07 Dose: 10 ml Cardiovascular: Normal S1, Normal S2 Lungs: Clear to auscultation Abdomen: Soft, no Tender Assessment/Plan - Problem List Patient Problems: All Active Problems COUGH AND CONGESTION WITH DYSPNEA (Acute) - Assessment Assessment: Pneumonia HTN Hyperlipidemia Obesity Hyperglycemia 2' to steroids Debilty - Plan Plan: Continue rocephine and zithromax IV Solumedrol Oxygen HHN Monitor vitals Pulmonary on board Follow up chest xray in am Plan of care discussed with nursing staff PT/OT DC plan discusse with DCP DC planing for SNIF
[2016-03-29] MEDS: Albuterol Nebulizer 2.5mg/3mL HHN SCH ×3 (00:30→12:24)
[2016-03-29] MEDS: methylPREDNISolone SS 40 mg Vial IVP SCH (08:51)
[2016-03-29] MEDS: cefTRIAXone 1 GM in Sodium Chloride 0.9% 50 ML IV SCH (16:06)
[2016-03-29] MEDS: Azithromycin 250 MG in Sodium Chloride 0.9% 250 ML IV SCH (16:30)
--- NOTE | 2016-03-29 18:24 | General Progress Note ---
Subjective - Review of Systems Service Date: 03/29/16 Subjective: Patient feels better denied any complaints Objective - Results Result Diagrams: 03/28/16 05:10 03/28/16 05:10 Recent Labs: Laboratory Last Values WBC 14.3 Th/cmm (4.8-10.8) H D 03/28/16 05:10 RBC 4.06 Mil/cmm (3.80-5.20) 03/28/16 05:10 Hgb 12.0 gm/dL (11.7-16.1) 03/28/16 05:10 Hct 34.9 % (35.0-45.0) L 03/28/16 05:10 MCV 86.0 fl (81-100) 03/28/16 05:10 MCH 29.5 pg (27.0-31.0) 03/28/16 05:10 MCHC Differential 34.3 pg (28.0-36.0) 03/28/16 05:10 RDW 13.7 % (11.5-20.0) 03/28/16 05:10 Plt Count 413 Th/cmm (150-400) H D 03/28/16 05:10 MPV 9.1 fl 03/28/16 05:10 Band Neutrophils % 8 % (0-10) 03/24/16 04:41 Neutrophils (Manual) 91 % (40-80) H 03/28/16 05:10 Lymphocytes 7 % (20-50) L 03/28/16 05:10 Monocytes 1 % (2-10) L 03/28/16 05:10 Eosinophils 0 % (0-5) 03/28/16 05:10 Metamyelocytes 1 % (0-0) H 03/24/16 04:41 Myelocytes 1 % 03/28/16 05:10 Platelet Estimate ADEQUATE (NORMAL) 03/28/16 05:10 Platelet Morphology NORMAL (NORMAL) 03/28/16 05:10 RBC Morph Micro Appear NORMAL (NORMAL) 03/28/16 05:10 Sodium 135 mEq/L (136-145) L 03/28/16 05:10 Potassium 4.9 mEq/L (3.5-5.1) 03/28/16 05:10 Chloride 103 mEq/L (98-107) 03/28/16 05:10 Carbon Dioxide 29.2 mEq/L (21.0-31.0) 03/28/16 05:10 Anion Gap 7.7 (7.0-16.0) 03/28/16 05:10 BUN 23 mg/dL (7-25) 03/28/16 05:10 Creatinine 0.8 mg/dL (0.6-1.2) 03/28/16 05:10 Est GFR ( Amer) TNP 03/28/16 05:10 Est GFR (Non-Af Amer) TNP 03/28/16 05:10 BUN/Creatinine Ratio 28.8 03/28/16 05:10 Glucose 244 mg/dL (70-105) H 03/28/16 05:10 Hemoglobin A1c % 6.3 % (4.0-6.0) H 03/24/16 04:41 Whole Bld Lactic Acid 1.37 mmol/L (0.60-2.00) 03/22/16 15:20 Calcium 9.0 mg/dL (8.6-10.3) 03/28/16 05:10 Total Bilirubin 0.2 mg/dL (0.3-1.0) L 03/26/16 05:46 AST 18 U/L (13-39) 03/26/16 05:46 ALT 25 U/L (7-52) 03/26/16 05:46 Alkaline Phosphatase 66 U/L (34-104) 03/26/16 05:46 Troponin I 0.01 ng/mL (0.01-0.05) 03/22/16 15:10 B-Natriuretic Peptide 101.0 pg/mL (5.0-100.0) H 03/22/16 15:10 Total Protein 6.7 gm/dL (6.0-8.3) 03/26/16 05:46 Albumin 2.9 gm/dL (3.7-5.3) L 03/26/16 05:46 Globulin 3.8 gm/dL 03/26/16 05:46 Albumin/Globulin Ratio 0.8 (1.0-1.8) L 03/26/16 05:46 - Physical Exam Vitals and I&O: Vital Signs Temp 97.3 F 03/29/16 16:00 Pulse 95 03/29/16 16:00 Resp 16 03/29/16 16:00 BP 153/61 03/29/16 16:00 Pulse Ox 95 03/29/16 16:00 Intake & Output 03/28/16 03/29/16 03/29/16 18:59 06:59 18:59 Intake Total 700 500 700 Balance 700 500 700 Intake: Intake, IV Amount 300 50 Azithromycin 250 mg In 250 Sodium Chloride 0.9% 250 ml @ 250 mls/hr IV Q24HR [facility] Rx#:[id number] cefTRIAXone 1 gm In 50 50 Sodium Chloride 0.9% 50 ml @ 100 mls/hr IV Q24HR [facility] Rx#:[id number] Oral 400 500 650 Other: # Voids 3 2 3 Cardiovascular: Normal S1, Normal S2 Lungs: Other (few rales) Abdomen: Soft, no Tender Assessment/Plan - Problem List Patient Problems: All Active Problems COUGH AND CONGESTION WITH DYSPNEA (Acute) - Assessment Assessment: Pneumonia HTN Hyperlipidemia Obesity Hyperglycemia 2' to steroids Debilty - Plan Plan: Continue rocephine and zithromax IV Solumedrol Oxygen HHN Monitor vitals Pulmonary on board Follow up chest xray in am Plan of care discussed with nursing staff PT/OT DC plan discusse with DCP DC planing for SNIF
--- NOTE | 2016-06-16 04:11 | Discharge Summary ---
FINAL DIAGNOSES: 1. Pneumonia. 2. Hypertension. 3. Hyperlipidemia. 4. Obesity. 5. ____ secondary to steroid. 6. Generalized debility. HOSPITAL COURSE: This is an 80-year-old female who admitted to the hospital for chest congestion, cough, fever and shortness of breath, diagnosed with pneumonia, started her on IV Rocephin Zithromax, pulmonology was consulted, also Solu-Medrol was started, oxygen nebulizer treatment was given. The patient was given ____ treatments. Subsequently, the patient's pulmonary status started improving. With physical and occupational therapy, the patient appeared ____ debilitated and weak. Discussed with the patient's family by social worker psychiatric, they agreed with the short-term [facility] discharge. Case management was consulted, the patient was finally accepted at [facility] for short-term rehab. Overall stay was rather uneventful. Underlying problems were addressed and treated. Pulmonology also followed the patient during hospital stay. DISCHARGE CONDITION: Stable. DISCHARGE MEDICATION: Please see medical reconciliation list. DISCHARGE INSTRUCTION: To be followed by primary MD at [facility]. JOB# [id number]
== END 2016-03-29 16:30 | DRG 194 ==
LOC: ER 14:16 → TELE 17:00
PROVIDERS: ADMIT Family Medicine; ATTEND Family Medicine
DX: J18.9 Pneumonia, unspecified organism (principal); Z68.41 Body mass index [BMI] 40.0-44.9, adult; I11.0 Hypertensive heart disease with heart failure; I50.9 Heart failure, unspecified; E78.5 Hyperlipidemia, unspecified; R53.81 Other malaise; J20.9 Acute bronchitis, unspecified; R09.02 Hypoxemia; E66.9 Obesity, unspecified; R73.9 Hyperglycemia, unspecified; T38.0X5A Adverse effect of glucocorticoids and synthetic analogues, initial encounter; Y92.89 Other specified places as the place of occurrence of the external cause
CPT/HCPCS: 36415-UA; 71010-TC; 80048-TC; 80053-TC; 83036-90; 83605; 83880-TC; 84484-TC; 85007-TC; 85027-TC; 93005; 94640; 94760; 97530; J0456; J0696; J2920; J2930; J7040; J7613; X3904